=== PATIENT | female | born 1950 | race Caucasian/White ===

== ENCOUNTER → 2017-03-29 | Outpatient (CLI) | payer MEDICARE, MEDICAID ==
[2015-06-25 11:55] VITALS: BP 157/67
--- NOTE | 2017-03-29 13:19 | EKG ---
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
== END | disposition home or self-care (01) ==
LOC: EKG 12:58
PROVIDERS: ATTEND Internal Medicine Hematology & Oncology
DX: C92.10 Chronic myeloid leukemia, BCR/ABL-positive, not having achieved remission (principal)
CPT/HCPCS: 93005

== ENCOUNTER 2017-05-29 14:45 | Inpatient (IN) | payer MEDICARE, OTHER ==
[~2017-05-29] VITALS: Ht 165.1 cm; Wt 49.6 kg
[2017-05-29 15:52] LABS: BILIRUBIN,URINE SMALL (NEG); GLUCOSE,URINE NEGATIVE (NEG); NITRITE,URINE NEGATIVE (NEG); PH,URINE 5.5; PROTEIN,URINE 30 mg/dL (NEG-TRACE); UROBILINOGEN,URINE 0.2 mg/dL (0.2 mg/dL)
[2017-05-29] MEDS ORDERED: IV NORMAL SALINE 1000ML BAG 1,000 ML IV SCH (15:57)
[2017-05-29] MEDS ORDERED: ONDANSETRON PF 4 MG/2 ML VIAL. IV ONE (16:00)
[2017-05-29 16:13] LABS: BACTERIA,URINE 0 /HPF (0-FEW); SQUAMOUS EPITHELIAL CELL,UR MOD /LPF; WBC,URINE >40 /HPF (0-4)
--- NOTE | 2017-05-29 16:13 | PHYS DOC ---
Past Medical History Past Medical History: CAD, Cancer, GERD, High Cholesterol, Hypertension, Other Additional Past Medical Histor: leukemia; stage 3 lung cancer. Past Surgical History: Coronary Bypass Surgery, Hysterectomy Additional Past Surgical Histo: cardiac cath with stents Alcohol Use: None Drug Use: None Adult General Chief Complaint Chief Complaint: BLOOD IN URINE HPI HPI Patient is a 66 year old female who presents with complaint of worsening vomiting and hematuria. Patient's symptoms have been worsening over the past 2 days. Patient is currently undergoing chemotherapy treatment for stage III lung cancer. Patient follows a Dr. Iniguez of oncology. The patient has been having diarrhea over the past 2 months as a result of her chemotherapy treatments. This has not changed over the past few days, however the patient has been having too numerous to count episodes of vomiting. Patient's son-in-law's present in the room with the patient and states that the vomitus has appeared green in color. Patient has not been passing any blood in her stools or vomitus but has been passing blood in her urine. Starting yesterday there was a red tinge to the urine, however today the patient has been passing red urine. Patient said no fever and denies any complaints of pain at this time. Patient does admit to worsening fatigue and weakness which is generalized. Review of Systems Review of Systems Constitutional: Generalized fatigue and weakness, denies fever or chills [] Eyes: Denies change in visual acuity, redness, or eye pain [] HENT: Denies nasal congestion or sore throat [] Respiratory: Denies cough or shortness of breath [] Cardiovascular: Denies chest pain or edema[] GI: Nausea, vomiting, diarrhea, denies abdominal pain[] : Denies dysuria or hematuria [] Musculoskeletal: Denies back pain or joint pain [] Integument: Denies rash or skin lesions [] Neurologic: Denies headache, focal weakness or sensory changes [] All other systems were reviewed and found to be within normal limits, except as documented in this note. Current Medications Current Medications Current Medications Medications (Trade) Dose Ordered Sig/Ino Start Time Stop Time Status Last Admin Dose Admin Ondansetron HCl (Zofran) 4 mg 1X ONCE 05/29/17 16:00 05/29/17 16:01 DC 05/29/17 16:00 4 MG Sodium Chloride 1,000 ml @ 1,000 mls/hr Q1H 05/29/17 15:57 05/29/17 16:56 DC 05/29/17 15:57 1,000 MLS/HR Allergies Allergies Allergies Coded Allergies Type Severity Reaction Last Updated Verified No Known Drug Allergies 06/25/15 No Physical Exam Physical Exam Constitutional: Alert, afebrile, vital signs stable, appears ill. [] HENT: Normocephalic, atraumatic, bilateral external ears normal, oropharynx dry , no oral exudates, nose normal. [] Eyes: PERRLA, EOMI, conjunctiva normal, no discharge. [] Neck: Normal range of motion, no tenderness, supple, no stridor. [] Cardiovascular:Heart rate regular rhythm, no murmur [] Lungs & Thorax: Bilateral breath sounds clear to auscultation [] Abdomen: Bowel sounds normal, soft, no tenderness, no masses, no pulsatile masses. [] Skin: Warm, dry, no erythema, no rash. [] Back: No tenderness, no CVA tenderness. [] Extremities: No tenderness, no cyanosis, no clubbing, ROM intact, no edema. [] Neurologic: Alert and oriented X 3, normal motor function, normal sensory function, no focal deficits noted. [] Current Patient Data Vital Signs Vital Signs Date Time Temp Pulse Resp B/P (MAP) Pulse Ox O2 Delivery O2 Flow Rate FiO2 05/29/17 15:25 98.6 72 22 151/59 (89) 97 Room Air 98.6 Lab Values Laboratory Tests Test 05/29/17 15:30 05/29/17 16:36 Urine Collection Type Unknown Urine Color Yellow Urine Clarity Clear Urine pH 5.5 Urine Specific [place] 1.025 Urine Protein 30 mg/dL (NEG-TRACE) Urine Glucose (UA) Negative mg/dL (NEG) Urine Ketones (Stick) Negative mg/dL (NEG) Urine Blood Negative (NEG) Urine Nitrite Negative (NEG) Urine Bilirubin Small (NEG) Urine Urobilinogen Dipstick 0.2 mg/dL (0.2 mg/dL) Urine Leukocyte Esterase Moderate (NEG) Urine RBC 1-2 /HPF (0-2) Urine WBC >40 /HPF (0-4) Urine Squamous Epithelial Cells Mod /LPF Urine Bacteria 0 /HPF (0-FEW) Urine Hyaline Casts Many /HPF Urine Mucus Mod /LPF White Blood Count 11.0 x10^3/uL (4.0-11.0) Red Blood Count 2.68 x10^6/uL (3.50-5.40) L Hemoglobin 7.9 g/dL (12.0-15.5) L Hematocrit 24.2 % (36.0-47.0) L Mean Corpuscular Volume 90 fL (79-100) Mean Corpuscular Hemoglobin 30 pg (25-35) Mean Corpuscular Hemoglobin Concent 33 g/dL (31-37) Red Cell Distribution Width 17.4 % (11.5-14.5) H Platelet Count 188 x10^3/uL (140-400) Neutrophils (%) (Auto) 75 % (31-73) H Lymphocytes (%) (Auto) 14 % (24-48) L Monocytes (%) (Auto) 9 % (0-9) Eosinophils (%) (Auto) 1 % (0-3) Basophils (%) (Auto) 1 % (0-3) Neutrophils # (Auto) 8.2 x10^3uL (1.8-7.7) H Lymphocytes # (Auto) 1.5 x10^3/uL (1.0-4.8) Monocytes # (Auto) 1.0 x10^3/uL (0.0-1.1) Eosinophils # (Auto) 0.1 x10^3/uL (0.0-0.7) Basophils # (Auto) 0.1 x10^3/uL (0.0-0.2) Sodium Level 138 mmol/L (136-145) Potassium Level 4.8 mmol/L (3.5-5.1) Chloride Level 107 mmol/L (98-107) Carbon Dioxide Level 17 mmol/L (21-32) L Anion Gap 14 (6-14) Blood Urea Nitrogen 34 mg/dL (7-20) H Creatinine 1.9 mg/dL (0.6-1.0) H Estimated GFR (Cockcroft-Gault) 26.4 BUN/Creatinine Ratio 18 (6-20) Glucose Level 104 mg/dL (70-99) H Calcium Level 8.4 mg/dL (8.5-10.1) L Total Bilirubin 0.2 mg/dL (0.2-1.0) Aspartate Amino Transferase (AST) 15 U/L (15-37) Alanine Aminotransferase (ALT) 13 U/L (14-59) L Alkaline Phosphatase 98 U/L (46-116) Total Protein 6.9 g/dL (6.4-8.2) Albumin 3.4 g/dL (3.4-5.0) Albumin/Globulin Ratio 1.0 (1.0-1.7) Lipase 144 U/L (73-393) Laboratory Tests 05/29/17 16:36 Laboratory Tests 05/29/17 16:36 EKG EKG Not performed[] Radiology/Procedures Radiology/Procedures [facility] [address] [place] [address] IMAGING REPORT Signed PATIENT: AJITH GARCIA ACCOUNT: [id number] : 1950 LOCATION: ER AGE: 66 SEX: F EXAM STATUS: REG ER ORD. PHYSICIAN: CHIKI ALEJANDRO MD REASON: vomiting PROCEDURE: ACUTE ABDOMEN SERIES Acute abdomen series with chest, 3 views, 05/29/2017: History: Vomiting There is moderate amount of gas in large and small bowel in a nonspecific pattern. No free air seen in the abdomen. There is no evidence of organomegaly. Scattered vascular calcifications are present. A vascular stent is evident in the right common iliac region. There has been a previous median sternotomy. The heart size is normal. The pulmonary vascularity is within normal limits. Mild infiltrate has developed laterally in the right midlung. This opacity was not present on 06/17/2012. No pleural fluid is evident. IMPRESSION: 1. Increased gas in large and small bowel may reflect a mild ileus. 2. New right lateral midlung opacity compatible with pneumonia. Follow-up imaging is suggested to exclude a neoplastic etiology. DICTATED and SIGNED BY: LUBNA MCCLENDON MD DATE: 05/29/17 163 CC: CHIKI ALEJANDRO MD; CIRA BOSCH MD ~ [] Course & Med Decision Making Course & Med Decision Making Pertinent Labs and Imaging studies reviewed. (See chart for details) The patient was started on IV fluids and Zofran in the emergency department. Patient's lab work and imaging show evidence of mild ileus as well as urinary tract infection. The patient has a noted opacity in the right lung which is compared consistent with her history of lung cancer. I do not believe this to be an acute pneumonia. Due to severity of symptoms, the patient will be admitted to the hospital for further treatment. I spoke with Dr. Mi who accepted care patient in hospital. Dragon Disclaimer Dragon Disclaimer This electronic medical record was generated, in whole or in part, using a voice recognition dictation system. Departure Departure Impression: Primary Impression: Ileus Additional Impressions: Urinary tract infection Dehydration Vomiting Lung cancer Normocytic anemia Disposition: ADMITTED INPATIENT Admitting Physician: Other Condition: STABLE Referrals: CIRA BOSCH MD (PCP) Problem Qualifiers Additional Impressions: Urinary tract infection Urinary tract infection type: site unspecified Hematuria presence: without hematuria Qualified Codes: N39.0 - Urinary tract infection, site not specified Vomiting Vomiting type: unspecified Vomiting Intractability: intractable Nausea presence: with nausea Qualified Codes: R11.2 - Nausea with vomiting, unspecified Lung cancer Laterality: right Lung location: middle lobe of lung Qualified Codes: C34.2 - Malignant neoplasm of middle lobe, bronchus or lung CHIKI ALEJANDRO MD May 29, 2017 16:13
--- NOTE | 2017-05-29 16:40 | RAD ---
Acute abdomen series with chest, 3 views, 05/29/2017: History: Vomiting There is moderate amount of gas in large and small bowel in a nonspecific pattern. No free air seen in the abdomen. There is no evidence of organomegaly. Scattered vascular calcifications are present. A vascular stent is evident in the right common iliac region. There has been a previous median sternotomy. The heart size is normal. The pulmonary vascularity is within normal limits. Mild infiltrate has developed laterally in the right midlung. This opacity was not present on 06/17/2012. No pleural fluid is evident. IMPRESSION: 1. Increased gas in large and small bowel may reflect a mild ileus. 2. New right lateral midlung opacity compatible with pneumonia. Follow-up imaging is suggested to exclude a neoplastic etiology.
[2017-05-29 16:45] LABS: BASO # 0.1 x10^3/uL (0.0-0.2); BASO % 1 % (0-3); EOS % 1 % (0-3); HEMATOCRIT 24.2 % (36.0-47.0); HEMOGLOBIN 7.9 g/dL (12.0-15.5); LYMPH # 1.5 x10^3/uL (1.0-4.8); LYMPH % 14 % (24-48); MEAN CORPUSCULAR HEMOGLOBIN 30 pg (25-35); MEAN CORPUSCULAR HGB CONC 33 g/dL (31-37); MEAN CORPUSCULAR VOLUME 90 fL (79-100); MONO % 9 % (0-9); NEUT % 75 % (31-73); PLATELET COUNT 188 x10^3/uL (140-400); RED BLOOD COUNT 2.68 x10^6/uL (3.50-5.40); RED CELL DISTRIBUTION WIDTH 17.4 % (11.5-14.5)
[2017-05-29 16:58] LABS: CALCIUM 8.4 mg/dL (8.5-10.1); CREATININE 1.9 mg/dL (0.6-1.0); GFR 26.4; POTASSIUM 4.8 mmol/L (3.5-5.1)
[2017-05-29 17:03] LABS: ALBUMIN 3.4 g/dL (3.4-5.0); TOTAL BILIRUBIN 0.2 mg/dL (0.2-1.0); TOTAL PROTEIN 6.9 g/dL (6.4-8.2)
[2017-05-29] MEDS ORDERED: ONDANSETRON PF 4 MG/2 ML VIAL. IV PRN (18:30)
[2017-05-29] MEDS ORDERED: ACETAMINOPHEN 325 MG TABLET. PO PRN (18:30)
[2017-05-29 19:10] VITALS: BP 112/30
[2017-05-29] MEDS: IV NORMAL SALINE 1000ML BAG 1,000 ML IV SCH (19:25)
[2017-05-29] MEDS: cefTRIAXone IV Push 1 GM VIAL. IVP SCH (21:17)
[2017-05-29 23:03] VITALS: BP 109/50
[2017-05-29] MEDS ORDERED: ATOR10TA60 PO (23:24)
[2017-05-29] MEDS ORDERED: ALPR0.25 PO (23:24)
[2017-05-29] MEDS ORDERED: HYDR-2758 PO (23:24)
[2017-05-29] MEDS ORDERED: LISI-338 PO (23:24)
[2017-05-29] MEDS ORDERED: MEGE40TA PO (23:24)
[2017-05-29] MEDS ORDERED: CITA40TA5 PO (23:24)
[2017-05-29] MEDS ORDERED: BOSU100T PO (23:24)
[2017-05-29] MEDS ORDERED: ALLO300T PO (23:24)
[2017-05-29] MEDS ORDERED: PROC5TAB14 PO (23:24)
[2017-05-29] MEDS ORDERED: ASPI81TA50 PO (23:24)
[2017-05-30] VITALS (10 sets, daily range): BP systolic 106–138; BP diastolic 42–64
[2017-05-30] MEDS ORDERED: PNEUMOCOCCAL VAX SCREEN BY RX. MC ONE
--- NOTE | 2017-05-30 00:29 | HP ---
ADMIT DATE: 05/29/2017 CHIEF COMPLAINT: Vomiting, hematuria. HISTORY OF PRESENT ILLNESS: The patient is a 66-year-old woman, currently undergoing treatment for CML, and anticipating treatment for recently diagnosed non-small cell lung carcinoma,who presented to the Emergency Room with vomiting. She herself actually cannot recall, but her family supplied the story. She apparently had vomitus as well as passing blood in the urine. The patient herself denies any symptoms including fatigue, chills, abdominal pain, chest pain, shortness of breath. She does have generalized fatigue and weakness. PAST MEDICAL HISTORY: Non-small cell lung carcinoma, under treatment with weekly chemotherapy by Dr. Iniguez; CAD; hypertension; hyperlipidemia; GERD. FAMILY HISTORY: The patient is unaware of heart disease or cancer in family. SOCIAL HISTORY: Lives with her daughter and son-in-law. Quit smoking 1 year ago. Denies any alcohol or drug use. ALLERGIES: No known drug allergies. MEDICATIONS: MAR reconciled with home medications. REVIEW OF SYSTEMS: Positive as per HPI. The patient currently denies any symptoms whatsoever. PHYSICAL EXAMINATION: VITAL SIGNS: From today show a blood pressure of 109/50, heart rate of 71, respiratory rate at 18. She is afebrile. Temperature at 99.1. GENERAL: This is a cachectic, frail appearing 66-year-old woman, awake, alert, in no acute distress. LUNGS: Clear. HEART: Has regular rate and rhythm. ABDOMEN: Has positive bowel sounds, soft, nontender. EXTREMITIES: Show no edema. SKIN: Warm, soft and dry. LABORATORY DATA: CBC with a WBC of 11.0, hemoglobin 7.9, MCV of 90, platelets of 188. Chemistries with a BUN and creatinine of 34 and 1.9. Normal electrolytes. CO2 at 17. LFTs within normal. Urine with greater than 40 wbc's, 1-2 rbc's, no bacteria. IMAGING STUDIES: Acute abdomen series shows increased gas in the large and small bowel, may reflect a mild ileus, new right lateral mid lung opacity compatible with pneumonia versus lung CA. ASSESSMENT AND PLAN: The patient is a 66-year-old woman currently undergoing -[id number]- -f-o-r- -l-u-n-g- -C-A--,- TKI treatment for CML, presenting with nausea, vomiting as well as hematuria. Nausea and vomiting seems to have resolved by now. I am not sure if this is related to chemotherapy that she received yesterday. We will consult Dr. Iniguez. In the meantime, I will treat her symptomatically with antiemetics. Hematuria observed at home has not been evidence here. She does have fever of unknown cause. We will obtain a culture, although no bacteria noted on UA. Treat empirically with antibiotics here, Rocephin has been started. We will await final culture. The patient is significantly anemic, most likely secondary to a primary malignancy as well as its treatment. She is stable above the transfusion threshold. We will continue to monitor for the time being. We will continue all other home medications as soon as available from daughter. ALEXANDREA SWAN MD DR: PAYAL/nts JOB#: [id number] / [id number] CIRA Garcia MD MTDD
[2017-05-30] MEDS: IV NORMAL SALINE 1000ML BAG 1,000 ML IV SCH ×2 (03:26→11:00)
[2017-05-30 05:01] LABS: BASO % 0 % (0-3); EOS % 1 % (0-3); LYMPH # 1.6 x10^3/uL (1.0-4.8); LYMPH % 18 % (24-48); MEAN CORPUSCULAR HEMOGLOBIN 29 pg (25-35); MEAN CORPUSCULAR HGB CONC 33 g/dL (31-37); MEAN CORPUSCULAR VOLUME 89 fL (79-100); MONO % 10 % (0-9); NEUT % 71 % (31-73); PLATELET COUNT 166 x10^3/uL (140-400); RED BLOOD COUNT 2.32 x10^6/uL (3.50-5.40); RED CELL DISTRIBUTION WIDTH 16.8 % (11.5-14.5); WHITE BLOOD COUNT 9.4 x10^3/uL (4.0-11.0)
[2017-05-30 05:12] LABS: CREATININE 1.2 mg/dL (0.6-1.0); GFR 44.9; HEMATOCRIT 20.7 % (36.0-47.0); HEMOGLOBIN 6.8 g/dL (12.0-15.5); POTASSIUM 4.2 mmol/L (3.5-5.1)
[2017-05-30 08:44] LABS: FOLATE 6.73 ng/ml (3.2-20.0)
[2017-05-30] MEDS ORDERED: PNEUMOC CONJ VACC 23-VALENT 0.5 ML VIAL. VAX IM ONE (09:00)
[2017-05-30 10:05] LABS: % SAT IRON 9 % (15-34); IRON,SERUM 18 ug/dL (50-170)
--- NOTE | 2017-05-30 10:48 | PDOC ---
PROGRESS NOTES Chief Complaint Chief Complaint Nausea and vomiting History of Present Illness History of Present Illness She says nausea is better, but she has no appetite. She denies any abdominal pain at this time. Vitals Vitals Vital Signs Date Time Temp Pulse Resp B/P (MAP) Pulse Ox O2 Delivery O2 Flow Rate FiO2 05/30/17 10:43 100.2 69 16 110/48 100.2 05/30/17 07:00 96 Room Air Physical Exam Physical Exam Abdomen: Nondistended, hypoactive bowel sounds, soft, diffusely nontender to palpation General: Alert, Oriented X3 Heart: Regular rate, Normal S1 Lungs: Clear Abdomen: Normal bowel sounds, Soft Extremities: No edema Labs LABS Laboratory Tests Test 05/29/17 15:30 05/29/17 16:36 05/30/17 03:55 Urine Collection Type Unknown Urine Color Yellow Urine Clarity Clear Urine pH 5.5 Urine Specific [place] 1.025 Urine Protein 30 mg/dL (NEG-TRACE) Urine Glucose (UA) Negative mg/dL (NEG) Urine Ketones (Stick) Negative mg/dL (NEG) Urine Blood Negative (NEG) Urine Nitrite Negative (NEG) Urine Bilirubin Small (NEG) Urine Urobilinogen Dipstick 0.2 mg/dL (0.2 mg/dL) Urine Leukocyte Esterase Moderate (NEG) Urine RBC 1-2 /HPF (0-2) Urine WBC >40 /HPF (0-4) Urine Squamous Epithelial Cells Mod /LPF Urine Bacteria 0 /HPF (0-FEW) Urine Hyaline Casts Many /HPF Urine Mucus Mod /LPF White Blood Count 11.0 x10^3/uL (4.0-11.0) 9.4 x10^3/uL (4.0-11.0) Red Blood Count 2.68 x10^6/uL (3.50-5.40) 2.32 x10^6/uL (3.50-5.40) Hemoglobin 7.9 g/dL (12.0-15.5) 6.8 g/dL (12.0-15.5) Hematocrit 24.2 % (36.0-47.0) 20.7 % (36.0-47.0) Mean Corpuscular Volume 90 fL (79-100) 89 fL (79-100) Mean Corpuscular Hemoglobin 30 pg (25-35) 29 pg (25-35) Mean Corpuscular Hemoglobin Concent 33 g/dL (31-37) 33 g/dL (31-37) Red Cell Distribution Width 17.4 % (11.5-14.5) 16.8 % (11.5-14.5) Platelet Count 188 x10^3/uL (140-400) 166 x10^3/uL (140-400) Neutrophils (%) (Auto) 75 % (31-73) 71 % (31-73) Lymphocytes (%) (Auto) 14 % (24-48) 18 % (24-48) Monocytes (%) (Auto) 9 % (0-9) 10 % (0-9) Eosinophils (%) (Auto) 1 % (0-3) 1 % (0-3) Basophils (%) (Auto) 1 % (0-3) 0 % (0-3) Neutrophils # (Auto) 8.2 x10^3uL (1.8-7.7) 6.6 x10^3uL (1.8-7.7) Lymphocytes # (Auto) 1.5 x10^3/uL (1.0-4.8) 1.6 x10^3/uL (1.0-4.8) Monocytes # (Auto) 1.0 x10^3/uL (0.0-1.1) 0.9 x10^3/uL (0.0-1.1) Eosinophils # (Auto) 0.1 x10^3/uL (0.0-0.7) 0.1 x10^3/uL (0.0-0.7) Basophils # (Auto) 0.1 x10^3/uL (0.0-0.2) 0.0 x10^3/uL (0.0-0.2) Sodium Level 138 mmol/L (136-145) 139 mmol/L (136-145) Potassium Level 4.8 mmol/L (3.5-5.1) 4.2 mmol/L (3.5-5.1) Chloride Level 107 mmol/L (98-107) 110 mmol/L (98-107) Carbon Dioxide Level 17 mmol/L (21-32) 17 mmol/L (21-32) Anion Gap 14 (6-14) 12 (6-14) Blood Urea Nitrogen 34 mg/dL (7-20) 23 mg/dL (7-20) Creatinine 1.9 mg/dL (0.6-1.0) 1.2 mg/dL (0.6-1.0) Estimated GFR (Cockcroft-Gault) 26.4 44.9 BUN/Creatinine Ratio 18 (6-20) Glucose Level 104 mg/dL (70-99) 90 mg/dL (70-99) Calcium Level 8.4 mg/dL (8.5-10.1) 8.0 mg/dL (8.5-10.1) Total Bilirubin 0.2 mg/dL (0.2-1.0) Aspartate Amino Transf (AST/SGOT) 15 U/L (15-37) Alanine Aminotransferase (ALT/SGPT) 13 U/L (14-59) Alkaline Phosphatase 98 U/L (46-116) Total Protein 6.9 g/dL (6.4-8.2) Albumin 3.4 g/dL (3.4-5.0) Albumin/Globulin Ratio 1.0 (1.0-1.7) Lipase 144 U/L (73-393) Reticulocyte Count (auto) 0.4 % (0.5-2.5) Iron Level 18 ug/dL (50-170) Total Iron Binding Capacity 210 ug/dL (250-450) Iron Saturation 9 % (15-34) Vitamin B12 Level 622 pg/mL (247-911) Serum Folate 6.73 ng/ml (3.2-20.0) Review of Systems Review of Systems Constitutional: Alert and oriented GI: Decreased appetite Neuro: Alert and oriented Assessment and Plan Assessmemt and Plan Problems Medical Problems: (1) Dehydration Status: Acute (2) Ileus Status: Acute (3) Lung cancer Status: Acute (4) Normocytic anemia Status: Acute (5) Urinary tract infection Status: Acute (6) Vomiting Status: Acute Acute kidney injury: Improving Plan: Continue inpatient care, IV antibiotics, supportive care is indicated Packed red blood cell transfusion today Monitor frequent vitals, daily labs Follow up urine culture Follow-up oncology recommendations Discussed with nurse Problems: Comment Review of Relevant I have reviewed the following items kings (where applicable) has been applied. Labs Laboratory Tests Test 05/29/17 15:30 05/29/17 16:36 05/30/17 03:55 Urine Collection Type Unknown Urine Color Yellow Urine Clarity Clear Urine pH 5.5 Urine Specific [place] 1.025 Urine Protein 30 mg/dL (NEG-TRACE) Urine Glucose (UA) Negative mg/dL (NEG) Urine Ketones (Stick) Negative mg/dL (NEG) Urine Blood Negative (NEG) Urine Nitrite Negative (NEG) Urine Bilirubin Small (NEG) Urine Urobilinogen Dipstick 0.2 mg/dL (0.2 mg/dL) Urine Leukocyte Esterase Moderate (NEG) Urine RBC 1-2 /HPF (0-2) Urine WBC >40 /HPF (0-4) Urine Squamous Epithelial Cells Mod /LPF Urine Bacteria 0 /HPF (0-FEW) Urine Hyaline Casts Many /HPF Urine Mucus Mod /LPF White Blood Count 11.0 x10^3/uL (4.0-11.0) 9.4 x10^3/uL (4.0-11.0) Red Blood Count 2.68 x10^6/uL (3.50-5.40) 2.32 x10^6/uL (3.50-5.40) Hemoglobin 7.9 g/dL (12.0-15.5) 6.8 g/dL (12.0-15.5) Hematocrit 24.2 % (36.0-47.0) 20.7 % (36.0-47.0) Mean Corpuscular Volume 90 fL (79-100) 89 fL (79-100) Mean Corpuscular Hemoglobin 30 pg (25-35) 29 pg (25-35) Mean Corpuscular Hemoglobin Concent 33 g/dL (31-37) 33 g/dL (31-37) Red Cell Distribution Width 17.4 % (11.5-14.5) 16.8 % (11.5-14.5) Platelet Count 188 x10^3/uL (140-400) 166 x10^3/uL (140-400) Neutrophils (%) (Auto) 75 % (31-73) 71 % (31-73) Lymphocytes (%) (Auto) 14 % (24-48) 18 % (24-48) Monocytes (%) (Auto) 9 % (0-9) 10 % (0-9) Eosinophils (%) (Auto) 1 % (0-3) 1 % (0-3) Basophils (%) (Auto) 1 % (0-3) 0 % (0-3) Neutrophils # (Auto) 8.2 x10^3uL (1.8-7.7) 6.6 x10^3uL (1.8-7.7) Lymphocytes # (Auto) 1.5 x10^3/uL (1.0-4.8) 1.6 x10^3/uL (1.0-4.8) Monocytes # (Auto) 1.0 x10^3/uL (0.0-1.1) 0.9 x10^3/uL (0.0-1.1) Eosinophils # (Auto) 0.1 x10^3/uL (0.0-0.7) 0.1 x10^3/uL (0.0-0.7) Basophils # (Auto) 0.1 x10^3/uL (0.0-0.2) 0.0 x10^3/uL (0.0-0.2) Sodium Level 138 mmol/L (136-145) 139 mmol/L (136-145) Potassium Level 4.8 mmol/L (3.5-5.1) 4.2 mmol/L (3.5-5.1) Chloride Level 107 mmol/L (98-107) 110 mmol/L (98-107) Carbon Dioxide Level 17 mmol/L (21-32) 17 mmol/L (21-32) Anion Gap 14 (6-14) 12 (6-14) Blood Urea Nitrogen 34 mg/dL (7-20) 23 mg/dL (7-20) Creatinine 1.9 mg/dL (0.6-1.0) 1.2 mg/dL (0.6-1.0) Estimated GFR (Cockcroft-Gault) 26.4 44.9 BUN/Creatinine Ratio 18 (6-20) Glucose Level 104 mg/dL (70-99) 90 mg/dL (70-99) Calcium Level 8.4 mg/dL (8.5-10.1) 8.0 mg/dL (8.5-10.1) Total Bilirubin 0.2 mg/dL (0.2-1.0) Aspartate Amino Transf (AST/SGOT) 15 U/L (15-37) Alanine Aminotransferase (ALT/SGPT) 13 U/L (14-59) Alkaline Phosphatase 98 U/L (46-116) Total Protein 6.9 g/dL (6.4-8.2) Albumin 3.4 g/dL (3.4-5.0) Albumin/Globulin Ratio 1.0 (1.0-1.7) Lipase 144 U/L (73-393) Reticulocyte Count (auto) 0.4 % (0.5-2.5) Iron Level 18 ug/dL (50-170) Total Iron Binding Capacity 210 ug/dL (250-450) Iron Saturation 9 % (15-34) Vitamin B12 Level 622 pg/mL (247-911) Serum Folate 6.73 ng/ml (3.2-20.0) Laboratory Tests Test 05/29/17 15:30 05/29/17 16:36 05/30/17 03:55 Urine Collection Type Unknown Urine Color Yellow Urine Clarity Clear Urine pH 5.5 Urine Specific [place] 1.025 Urine Protein 30 mg/dL (NEG-TRACE) Urine Glucose (UA) Negative mg/dL (NEG) Urine Ketones (Stick) Negative mg/dL (NEG) Urine Blood Negative (NEG) Urine Nitrite Negative (NEG) Urine Bilirubin Small (NEG) Urine Urobilinogen Dipstick 0.2 mg/dL (0.2 mg/dL) Urine Leukocyte Esterase Moderate (NEG) Urine RBC 1-2 /HPF (0-2) Urine WBC >40 /HPF (0-4) Urine Squamous Epithelial Cells Mod /LPF Urine Bacteria 0 /HPF (0-FEW) Urine Hyaline Casts Many /HPF Urine Mucus Mod /LPF White Blood Count 11.0 x10^3/uL (4.0-11.0) 9.4 x10^3/uL (4.0-11.0) Red Blood Count 2.68 x10^6/uL (3.50-5.40) 2.32 x10^6/uL (3.50-5.40) Hemoglobin 7.9 g/dL (12.0-15.5) 6.8 g/dL (12.0-15.5) Hematocrit 24.2 % (36.0-47.0) 20.7 % (36.0-47.0) Mean Corpuscular Volume 90 fL (79-100) 89 fL (79-100) Mean Corpuscular Hemoglobin 30 pg (25-35) 29 pg (25-35) Mean Corpuscular Hemoglobin Concent 33 g/dL (31-37) 33 g/dL (31-37) Red Cell Distribution Width 17.4 % (11.5-14.5) 16.8 % (11.5-14.5) Platelet Count 188 x10^3/uL (140-400) 166 x10^3/uL (140-400) Neutrophils (%) (Auto) 75 % (31-73) 71 % (31-73) Lymphocytes (%) (Auto) 14 % (24-48) 18 % (24-48) Monocytes (%) (Auto) 9 % (0-9) 10 % (0-9) Eosinophils (%) (Auto) 1 % (0-3) 1 % (0-3) Basophils (%) (Auto) 1 % (0-3) 0 % (0-3) Neutrophils # (Auto) 8.2 x10^3uL (1.8-7.7) 6.6 x10^3uL (1.8-7.7) Lymphocytes # (Auto) 1.5 x10^3/uL (1.0-4.8) 1.6 x10^3/uL (1.0-4.8) Monocytes # (Auto) 1.0 x10^3/uL (0.0-1.1) 0.9 x10^3/uL (0.0-1.1) Eosinophils # (Auto) 0.1 x10^3/uL (0.0-0.7) 0.1 x10^3/uL (0.0-0.7) Basophils # (Auto) 0.1 x10^3/uL (0.0-0.2) 0.0 x10^3/uL (0.0-0.2) Sodium Level 138 mmol/L (136-145) 139 mmol/L (136-145) Potassium Level 4.8 mmol/L (3.5-5.1) 4.2 mmol/L (3.5-5.1) Chloride Level 107 mmol/L (98-107) 110 mmol/L (98-107) Carbon Dioxide Level 17 mmol/L (21-32) 17 mmol/L (21-32) Anion Gap 14 (6-14) 12 (6-14) Blood Urea Nitrogen 34 mg/dL (7-20) 23 mg/dL (7-20) Creatinine 1.9 mg/dL (0.6-1.0) 1.2 mg/dL (0.6-1.0) Estimated GFR (Cockcroft-Gault) 26.4 44.9 BUN/Creatinine Ratio 18 (6-20) Glucose Level 104 mg/dL (70-99) 90 mg/dL (70-99) Calcium Level 8.4 mg/dL (8.5-10.1) 8.0 mg/dL (8.5-10.1) Total Bilirubin 0.2 mg/dL (0.2-1.0) Aspartate Amino Transf (AST/SGOT) 15 U/L (15-37) Alanine Aminotransferase (ALT/SGPT) 13 U/L (14-59) Alkaline Phosphatase 98 U/L (46-116) Total Protein 6.9 g/dL (6.4-8.2) Albumin 3.4 g/dL (3.4-5.0) Albumin/Globulin Ratio 1.0 (1.0-1.7) Lipase 144 U/L (73-393) Reticulocyte Count (auto) 0.4 % (0.5-2.5) Iron Level 18 ug/dL (50-170) Total Iron Binding Capacity 210 ug/dL (250-450) Iron Saturation 9 % (15-34) Vitamin B12 Level 622 pg/mL (247-911) Serum Folate 6.73 ng/ml (3.2-20.0) Medications Current Medications Sodium Chloride 1,000 ml @ 1,000 mls/hr Q1H IV Last administered on 15:57; Start 05/29/17 at 15:57; Stop 05/29/17 at 16:56; Status DC Ondansetron HCl (Zofran) 4 mg 1X ONCE IV Last administered on 05/29/17 16:00 ; Start 05/29/17 at 16:00; Stop 05/29/17 at 16:01; Status DC Ondansetron HCl (Zofran) 4 mg PRN Q8HRS PRN IV NAUSEA/VOMITING Last administered on 05/29/17 21:17; Start 05/29/17 at 18:30; Stop 05/30/17 at 18 :29 Sodium Chloride 1,000 ml @ 125 mls/hr Q8H IV Last administered on 05/30/17 03:26; Start 05/29/17 at 19:00; Stop 05/30/17 at 18:59 Acetaminophen (Tylenol) 650 mg PRN Q4HRS PRN PO FEVER Last administered on 09:11; Start 05/29/17 at 18:30; Stop 05/30/17 at 18:29 Ceftriaxone Sodium 1 gm/ Dextrose 50 ml @ 100 mls/hr Q24H IV ; Start 05/29/17 at 18:30; Status UNV Ceftriaxone Sodium (Rocephin) 1 gm Q24H IVP Last administered on 05/29/17 21: 17; Start 05/29/17 at 20:00 Pneumococcal Polyvalent Vaccine (Do NOT chart on this placeholder) 0.5 each 1X ONCE MC ; Start 05/30/17 at 00:00; Stop 05/30/17 at 00:01; Status UNV Pneumococcal Polyvalent Vaccine (Pneumovax 23) 0.5 ml ONCE ONCE VAX IM ; Start 05/30/17 at 09:00; Stop 05/30/17 at 09:01; Status DC Active Scripts Active Reported Bosulif (Bosutinib) 100 Mg Tablet 100 Mg PO DAILY Bosulif (Bosutinib) 100 Mg Tablet 100 Mg PO DAILY Prochlorperazine Maleate 10 Mg Tablet 1 Tab PO Q6HRS Megestrol Acetate 40 Mg Tablet 40 Mg PO DAILY Atorvastatin Calcium 10 Mg Tablet 1 Tab PO DAILY Xanax (Alprazolam) 0.25 Mg Tablet 0.25 Mg PO PRN QHS PRN Citalopram Hbr (Citalopram Hydrobromide) 40 Mg Tablet 1 Tab PO DAILY Lisinopril 5 Mg Tablet 1 Tab PO DAILY Aspir-Low (Aspirin) 81 Mg Tablet. 1 Tab PO DAILY Allopurinol 300 Mg Tablet 1 Tab PO DAILY Hydrocodone-Apap 5-325 (Hydrocodone Bit/Acetaminophen) 1 Each Tablet 1 Tab PO PRN Q6HRS PRN Vitals/I & O Vital Sign - Last 24 Hours 05/29/17 05/29/17 05/29/17 05/29/17 15:25 19:10 19:10 23:03 Temp 98.6 99.3 99.1 98.6 99.3 99.1 Pulse 72 69 71 Resp 22 18 18 B/P (MAP) 151/59 (89) 112/30 (57) 109/50 (69) Pulse Ox 97 98 96 O2 Delivery Room Air Room Air Room Air Room Air 05/30/17 05/30/17 05/30/17 05/30/17 03:00 07:00 10:23 10:43 Temp 98.0 99.5 99.1 100.2 98.0 99.5 99.1 100.2 Pulse 76 83 74 69 Resp 18 18 14 16 B/P (MAP) 128/58 (81) 127/54 (78) 106/42 110/48 Pulse Ox 90 96 O2 Delivery Room Air Room Air Intake and Output 05/29/17 05/29/17 05/30/17 15:00 23:00 07:00 Intake Total 60 ml 1502 ml Output Total 500 ml Balance 60 ml 1002 ml GEOVANNI GAUTHIER MD May 30, 2017 10:48
[2017-05-30] MEDS ORDERED: ACETAMINOPHEN 325 MG TABLET. PO ONE (11:15)
[2017-05-30] MEDS ORDERED: ALPRAZolam 0.25 MG TABLET PO PRN (15:00)
[2017-05-30] MEDS: CITALOPRAM 20 MG TABLET. PO SCH (17:19)
[2017-05-30] MEDS: ALLOPURINOL 300 MG TABLET. PO SCH (17:19)
[2017-05-30 18:07] LABS: BASO % 1 % (0-3); EOS % 2 % (0-3); HEMATOCRIT 23.6 % (36.0-47.0); HEMOGLOBIN 7.8 g/dL (12.0-15.5); LYMPH # 0.9 x10^3/uL (1.0-4.8); LYMPH % 14 % (24-48); MEAN CORPUSCULAR HEMOGLOBIN 29 pg (25-35); MEAN CORPUSCULAR HGB CONC 33 g/dL (31-37); MEAN CORPUSCULAR VOLUME 88 fL (79-100); MONO % 10 % (0-9); NEUT % 74 % (31-73); PLATELET COUNT 152 x10^3/uL (140-400); RED BLOOD COUNT 2.69 x10^6/uL (3.50-5.40)
--- NOTE | 2017-05-30 18:24 | PDOC2 ---
CONSULT Date of Consult Date of Consult DATE: 05/30/17 TIME: 18:10 Current Problem List Problem List Problems Medical Problems: (1) Dehydration Status: Acute (2) Ileus Status: Acute (3) Lung cancer Status: Acute (4) Normocytic anemia Status: Acute (5) Urinary tract infection Status: Acute (6) Vomiting Status: Acute Current Medications Current Medications Current Medications Sodium Chloride 1,000 ml @ 1,000 mls/hr Q1H IV Last administered on 15:57; Start 05/29/17 at 15:57; Stop 05/29/17 at 16:56; Status DC Ondansetron HCl (Zofran) 4 mg 1X ONCE IV Last administered on 05/29/17 16:00 ; Start 05/29/17 at 16:00; Stop 05/29/17 at 16:01; Status DC Ondansetron HCl (Zofran) 4 mg PRN Q8HRS PRN IV NAUSEA/VOMITING Last administered on 05/29/17 21:17; Start 05/29/17 at 18:30; Stop 05/30/17 at 18 :29 Sodium Chloride 1,000 ml @ 125 mls/hr Q8H IV Last administered on 05/30/17 11:00; Start 05/29/17 at 19:00; Stop 05/30/17 at 18:59 Acetaminophen (Tylenol) 650 mg PRN Q4HRS PRN PO FEVER Last administered on 09:11; Start 05/29/17 at 18:30; Stop 05/30/17 at 18:29 Ceftriaxone Sodium 1 gm/ Dextrose 50 ml @ 100 mls/hr Q24H IV ; Start 05/29/17 at 18:30; Status UNV Ceftriaxone Sodium (Rocephin) 1 gm Q24H IVP Last administered on 05/29/17 21: 17; Start 05/29/17 at 20:00 Pneumococcal Polyvalent Vaccine (Do NOT chart on this placeholder) 0.5 each 1X ONCE MC ; Start 05/30/17 at 00:00; Stop 05/30/17 at 00:01; Status UNV Pneumococcal Polyvalent Vaccine (Pneumovax 23) 0.5 ml ONCE ONCE VAX IM ; Start 05/30/17 at 09:00; Stop 05/30/17 at 09:01; Status DC Acetaminophen (Tylenol) 650 mg 1X ONCE PO Last administered on 05/30/17 11: 18; Start 05/30/17 at 11:15; Stop 05/30/17 at 11:16; Status DC Allopurinol (Zyloprim) 300 mg DAILY PO Last administered on 05/30/17 17:19; Start 05/30/17 at 16:00 Alprazolam (Xanax) 0.25 mg PRN QHS PRN PO ANXIETY / AGITATION; Start 05/30/17 at 15:00 Atorvastatin Calcium (Lipitor) 10 mg QHS PO ; Start 05/30/17 at 21:00 Citalopram Hydrobromide (CeleXA) 40 mg DAILY PO Last administered on 17:19; Start 05/30/17 at 16:00 Active Scripts Active Reported Bosulif (Bosutinib) 100 Mg Tablet 100 Mg PO DAILY Bosulif (Bosutinib) 100 Mg Tablet 100 Mg PO DAILY Prochlorperazine Maleate 10 Mg Tablet 1 Tab PO Q6HRS Megestrol Acetate 40 Mg Tablet 40 Mg PO DAILY Atorvastatin Calcium 10 Mg Tablet 1 Tab PO DAILY Xanax (Alprazolam) 0.25 Mg Tablet 0.25 Mg PO PRN QHS PRN Citalopram Hbr (Citalopram Hydrobromide) 40 Mg Tablet 1 Tab PO DAILY Lisinopril 5 Mg Tablet 1 Tab PO DAILY Aspir-Low (Aspirin) 81 Mg Tablet. 1 Tab PO DAILY Allopurinol 300 Mg Tablet 1 Tab PO DAILY Hydrocodone-Apap 5-325 (Hydrocodone Bit/Acetaminophen) 1 Each Tablet 1 Tab PO PRN Q6HRS PRN Allergies Allergies: Coded Allergies: No Known Drug Allergies (Unverified , 06/25/15) Vitals VITALS Vital Signs Date Time Temp Pulse Resp B/P (MAP) Pulse Ox O2 Delivery O2 Flow Rate FiO2 05/30/17 15:00 100.2 79 20 133/43 (73) 97 Room Air 100.2 Labs Labs Laboratory Tests Test 05/29/17 15:30 05/29/17 16:36 05/30/17 03:55 05/30/17 17:40 Urine Collection Type Unknown Urine Color Yellow Urine Clarity Clear Urine pH 5.5 Urine Specific [place] 1.025 Urine Protein 30 mg/dL (NEG-TRACE) Urine Glucose (UA) Negative mg/dL (NEG) Urine Ketones (Stick) Negative mg/dL (NEG) Urine Blood Negative (NEG) Urine Nitrite Negative (NEG) Urine Bilirubin Small (NEG) Urine Urobilinogen Dipstick 0.2 mg/dL (0.2 mg/dL) Urine Leukocyte Esterase Moderate (NEG) Urine RBC 1-2 /HPF (0-2) Urine WBC >40 /HPF (0-4) Urine Squamous Epithelial Cells Mod /LPF Urine Bacteria 0 /HPF (0-FEW) Urine Hyaline Casts Many /HPF Urine Mucus Mod /LPF White Blood Count 11.0 x10^3/uL (4.0-11.0) 9.4 x10^3/uL (4.0-11.0) 7.0 x10^3/uL (4.0-11.0) Red Blood Count 2.68 x10^6/uL (3.50-5.40) 2.32 x10^6/uL (3.50-5.40) 2.69 x10^6/uL (3.50-5.40) Hemoglobin 7.9 g/dL (12.0-15.5) 6.8 g/dL (12.0-15.5) 7.8 g/dL (12.0-15.5) Hematocrit 24.2 % (36.0-47.0) 20.7 % (36.0-47.0) 23.6 % (36.0-47.0) Mean Corpuscular Volume 90 fL (79-100) 89 fL (79-100) 88 fL (79-100) Mean Corpuscular Hemoglobin 30 pg (25-35) 29 pg (25-35) 29 pg (25-35) Mean Corpuscular Hemoglobin Concent 33 g/dL (31-37) 33 g/dL (31-37) 33 g/dL (31-37) Red Cell Distribution Width 17.4 % (11.5-14.5) 16.8 % (11.5-14.5) 18.0 % (11.5-14.5) Platelet Count 188 x10^3/uL (140-400) 166 x10^3/uL (140-400) 152 x10^3/uL (140-400) Neutrophils (%) (Auto) 75 % (31-73) 71 % (31-73) 74 % (31-73) Lymphocytes (%) (Auto) 14 % (24-48) 18 % (24-48) 14 % (24-48) Monocytes (%) (Auto) 9 % (0-9) 10 % (0-9) 10 % (0-9) Eosinophils (%) (Auto) 1 % (0-3) 1 % (0-3) 2 % (0-3) Basophils (%) (Auto) 1 % (0-3) 0 % (0-3) 1 % (0-3) Neutrophils # (Auto) 8.2 x10^3uL (1.8-7.7) 6.6 x10^3uL (1.8-7.7) 5.2 x10^3uL (1.8-7.7) Lymphocytes # (Auto) 1.5 x10^3/uL (1.0-4.8) 1.6 x10^3/uL (1.0-4.8) 0.9 x10^3/uL (1.0-4.8) Monocytes # (Auto) 1.0 x10^3/uL (0.0-1.1) 0.9 x10^3/uL (0.0-1.1) 0.7 x10^3/uL (0.0-1.1) Eosinophils # (Auto) 0.1 x10^3/uL (0.0-0.7) 0.1 x10^3/uL (0.0-0.7) 0.1 x10^3/uL (0.0-0.7) Basophils # (Auto) 0.1 x10^3/uL (0.0-0.2) 0.0 x10^3/uL (0.0-0.2) 0.0 x10^3/uL (0.0-0.2) Sodium Level 138 mmol/L (136-145) 139 mmol/L (136-145) Potassium Level 4.8 mmol/L (3.5-5.1) 4.2 mmol/L (3.5-5.1) Chloride Level 107 mmol/L (98-107) 110 mmol/L (98-107) Carbon Dioxide Level 17 mmol/L (21-32) 17 mmol/L (21-32) Anion Gap 14 (6-14) 12 (6-14) Blood Urea Nitrogen 34 mg/dL (7-20) 23 mg/dL (7-20) Creatinine 1.9 mg/dL (0.6-1.0) 1.2 mg/dL (0.6-1.0) Estimated GFR (Cockcroft-Gault) 26.4 44.9 BUN/Creatinine Ratio 18 (6-20) Glucose Level 104 mg/dL (70-99) 90 mg/dL (70-99) Calcium Level 8.4 mg/dL (8.5-10.1) 8.0 mg/dL (8.5-10.1) Total Bilirubin 0.2 mg/dL (0.2-1.0) Aspartate Amino Transf (AST/SGOT) 15 U/L (15-37) Alanine Aminotransferase (ALT/SGPT) 13 U/L (14-59) Alkaline Phosphatase 98 U/L (46-116) Total Protein 6.9 g/dL (6.4-8.2) Albumin 3.4 g/dL (3.4-5.0) Albumin/Globulin Ratio 1.0 (1.0-1.7) Lipase 144 U/L (73-393) Reticulocyte Count (auto) 0.4 % (0.5-2.5) Iron Level 18 ug/dL (50-170) Total Iron Binding Capacity 210 ug/dL (250-450) Iron Saturation 9 % (15-34) Ferritin 547 ng/mL (8-252) Vitamin B12 Level 622 pg/mL (247-911) Serum Folate 6.73 ng/ml (3.2-20.0) Laboratory Tests Test 05/30/17 03:55 05/30/17 17:40 White Blood Count 9.4 x10^3/uL (4.0-11.0) 7.0 x10^3/uL (4.0-11.0) Red Blood Count 2.32 x10^6/uL (3.50-5.40) 2.69 x10^6/uL (3.50-5.40) Hemoglobin 6.8 g/dL (12.0-15.5) 7.8 g/dL (12.0-15.5) Hematocrit 20.7 % (36.0-47.0) 23.6 % (36.0-47.0) Mean Corpuscular Volume 89 fL (79-100) 88 fL (79-100) Mean Corpuscular Hemoglobin 29 pg (25-35) 29 pg (25-35) Mean Corpuscular Hemoglobin Concent 33 g/dL (31-37) 33 g/dL (31-37) Red Cell Distribution Width 16.8 % (11.5-14.5) 18.0 % (11.5-14.5) Platelet Count 166 x10^3/uL (140-400) 152 x10^3/uL (140-400) Neutrophils (%) (Auto) 71 % (31-73) 74 % (31-73) Lymphocytes (%) (Auto) 18 % (24-48) 14 % (24-48) Monocytes (%) (Auto) 10 % (0-9) 10 % (0-9) Eosinophils (%) (Auto) 1 % (0-3) 2 % (0-3) Basophils (%) (Auto) 0 % (0-3) 1 % (0-3) Neutrophils # (Auto) 6.6 x10^3uL (1.8-7.7) 5.2 x10^3uL (1.8-7.7) Lymphocytes # (Auto) 1.6 x10^3/uL (1.0-4.8) 0.9 x10^3/uL (1.0-4.8) Monocytes # (Auto) 0.9 x10^3/uL (0.0-1.1) 0.7 x10^3/uL (0.0-1.1) Eosinophils # (Auto) 0.1 x10^3/uL (0.0-0.7) 0.1 x10^3/uL (0.0-0.7) Basophils # (Auto) 0.0 x10^3/uL (0.0-0.2) 0.0 x10^3/uL (0.0-0.2) Reticulocyte Count (auto) 0.4 % (0.5-2.5) Sodium Level 139 mmol/L (136-145) Potassium Level 4.2 mmol/L (3.5-5.1) Chloride Level 110 mmol/L (98-107) Carbon Dioxide Level 17 mmol/L (21-32) Anion Gap 12 (6-14) Blood Urea Nitrogen 23 mg/dL (7-20) Creatinine 1.2 mg/dL (0.6-1.0) Estimated GFR (Cockcroft-Gault) 44.9 Glucose Level 90 mg/dL (70-99) Calcium Level 8.0 mg/dL (8.5-10.1) Iron Level 18 ug/dL (50-170) Total Iron Binding Capacity 210 ug/dL (250-450) Iron Saturation 9 % (15-34) Ferritin 547 ng/mL (8-252) Vitamin B12 Level 622 pg/mL (247-911) Serum Folate 6.73 ng/ml (3.2-20.0) Assessment/Plan Assessment/Plan Heme/Onc Consult REASON FOR CONSULT ~ CML diagnosed 09/19/[address] Mi History of Present Illness Ms Lynne Frost is a female, who was 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 ~She was initially treated with~nilotinib , but it was discontinued due to QTc prolongation. ~The patient is unsure about the reason for discontinuation. ~Subsequently, Gleevec~was initiated, and she is currently on 300 mg a day. ~Gleevec was held on March 03, 2015, because of prolonged QT interval of 479 milliseconds. ~EKG was repeated on 17 of March, and the QT interval was corrected at 453 milliseconds. ~However, she has not resumed Gleevec, and she has been under the care of Dr. Ernst Joseph. ~The patient has now moved from [place] to [place], and she is here to establish care with me. ~She reports that she has ran out of Gleevec, and she wants to get a prescription so she can resume it. I reviewed old records, and I reviewed a note from Dr. Lani Hernandez. ~The patient had presented to [facility] on 08/19/2009 for severely elevated WBC count. ~The patient has a chronic history of elevated WBC of 20-25 range. ~Her white cells were over 1000 at the time of admission to [facility]. ~She was started on hydroxyurea to decrease her blood counts. ~ Bone marrow biopsy revealed chronic myelogenous leukemia showing 55% cellularity , and she was given Tasigna at 400 mg daily. ~She responded very well to Gleevec. The patient was subsequently evaluated by Dr. Soria and then the patient transferred her care to Dr. Jose Luis Cedillo. ~Dr. Cedillo felt that nilotinib was relatively contraindicated because of the risk of exacerbation of peripheral vascular disease with nilotinib and, hence, nilotinib was held. ~She subsequently transferred her care to Dr. Ernst Joseph, and Gleevec was initiated in August of 2014. BCR ABL worse at 55.487% 03/12/17. I discussed with the patient and her daughter. ~Her daughter confirmed that she has been getting Gleevec. ~Since the markers are worse this is suggestive of resistance to Gleevec and I will switch to~Bosulif - prescribed 03/25/17. Stage IIIA NSCLC - Moderately to poorly differentiated adenocarcinoma in RUL diagnosed 04/11/17~- with potential nodules in the RLL and enlarged adenopathy right hilar at 1.1cm.~MRI head negative.~PET scan on 04/19/2017 reveals large hypermetabolic right upper lobe lung mass with evidence of metastatic disease to the right hilar and mediastinal lymph nodes compatible with stage IIIa lung cancer. I reviewed the diagnosis and prognosis and treatment options for stage IIIa non- small cell lung cancer. ~If she chooses active treatment is I would recommend concurrent chemoradiation therapy. ~The other option would be radiation therapy and chemotherapy given sequentially. ~Other option would be radiation therapy alone because of her poor functional status. ~The patient and daughter are concerned about her ability to tolerate chemotherapy and radiation therapy because of her baseline poor functional status. ~I reviewed the risks and benefits. ~They have decided supportive care only and no chemo or radiation.. She is now admitted to [facility] for ileus/n/v. Past medical history: ~~Coronary artery disease, depression, peripheral vascular disease with history of four stents placed in her right leg, congestive heart failure, COPD, fibromyalgia, and hypercholesterolemia. Social history: ~She smokes cigarettes one pack a day. Family history: ~Negative for malignancy. ROS - 12 point ROS performed, mentioned in HPI, rest neg Physical Exam~ Constitutional: She is oriented to person, place, and time. She appears well- developed~and well-nourished. HENT: Head: Normocephalic~and atraumatic. Eyes: EOM~are normal. Neck: Neck supple. Cardiovascular: Normal rate~and normal heart sounds. ~ Pulmonary/Chest: Effort normal~and breath sounds normal. Abdominal: Soft. There is mild tenderness. Musculoskeletal: She exhibits no tenderness. Neurological: She is alert~and oriented to person, place, and time. Skin: Skin is warm~and dry. Psychiatric: She has a normal mood and affect. Assessment and Plan: 1. CML diagnosed in 2009, initially treated with~nilotinib~and then discontinued because of concerns that it makes as peripheral vascular disease and concerns regarding possible prolonged QT interval. ~Gleevec~was initiated in August 2014, she is tolerating it very well. ~I have advised her to resume Gleevec. ~She is currently at 300 mg a day. ~I also consulted Cardiology because of her history of coronary artery disease and her history of QT prolongation. ~I reviewed in detail the risks and benefits of treatment with Gleevec. ~She understands and she agrees to proceed with it. ~WBC was worse at 53.6 in 05/2015, prescription for gleevec~400 mg/day was given 05/12/2015. PCR for BCR-ABL on 10/03/15 reveals improving transcripts, but worse on 01/13/16 as she mentions that she had missed 3 weeks of gleevec due to insurance issues. She has since resumed. WBC improved 8.8. BCR-ABL still high, I am concerned about her compliance, I again advised the importance of compliance. Patient's daughter is concerned that Lynne did NOT receive Gleevec while she was in a fpc for 4 months this spring. The daughter states that Lynne has received it daily since the beginning of December 2016. CBC on 03/12/2017 reveals that her white cells remain high at 20.3 and the platelets are still high at 1540 and she continues to have anemia at 8.7. CBC on 03/25/2017 reveals that her white cells are worse at 30.8 and the platelets are still high at 1649 and she continues to have anemia at 8.1. BCR ABL worse at 55.487% 03/12/17. I discussed with the patient and her daughter. ~Her daughter confirmed that she has been getting Gleevec. ~Since the markers are worse this is suggestive of resistance to Gleevec and I will switch to~Bosulif - prescribed 03/25/17. ~I reviewed risk and benefits and pt understands and agrees to proceed with treatment. WBC better at 7.0 on 05/30/17. and BCR ABL improved with bosulif. Bosulif can cause nausea (47% to 48%), vomiting (37% to 43%), abdominal pain (31 % to 42%), Continue bosulif 500 mg dailywhen able to tolerate oral intake. 2. Stage IIIA NSCLC - Moderately to poorly differentiated adenocarcinoma in RUL diagnosed 04/11/17~- with potential nodules in the RLL and enlarged adenopathy right hilar at 1.1cm.~MRI head negative.~PET scan on 04/19/2017 reveals large hypermetabolic right upper lobe lung mass with evidence of metastatic disease to the right hilar and mediastinal lymph nodes compatible with stage IIIa lung cancer. I reviewed the diagnosis and prognosis and treatment options for stage IIIa non- small cell lung cancer. ~If she chooses active treatment is I would recommend concurrent chemoradiation therapy. ~The other option would be radiation therapy and chemotherapy given sequentially. ~Other option would be radiation therapy alone because of her poor functional status. ~The patient and daughter are concerned about her ability to tolerate chemotherapy and radiation therapy because of her baseline poor functional status. ~I reviewed the risks and benefits. ~They have decided supportive care only and no chemo or radiation.. 3. N/V - ? due to bosulif. monitor. WILIAN BUNDY MD May 30, 2017 18:24
[2017-05-30] MEDS: ATORVASTATIN CALCIUM 10 MG TABLET. PO SCH ×2 (20:33→21:00)
[2017-05-30] MEDS: cefTRIAXone IV Push 1 GM VIAL. IVP SCH (20:34)
[2017-05-30] MEDS: IV DEXTROSE 5 %-0.45 % NACL 1,000 ML IV SCH (22:34)
[2017-05-31 03:00] VITALS: BP 129/49
[2017-05-31 05:53] LABS: CALCIUM 8.4 mg/dL (8.5-10.1); CREATININE 0.9 mg/dL (0.6-1.0); GFR 62.6; POTASSIUM 4.2 mmol/L (3.5-5.1)
[2017-05-31 07:00] VITALS: BP 158/66
[2017-05-31] MEDS: CITALOPRAM 20 MG TABLET. PO SCH (08:16)
[2017-05-31] MEDS: ALLOPURINOL 300 MG TABLET. PO SCH (08:16)
[2017-05-31] MEDS: IV DEXTROSE 5 %-0.45 % NACL 1,000 ML IV SCH ×2 (08:30→18:30)
--- NOTE | 2017-05-31 09:12 | PDOC ---
PROGRESS NOTES Subjective Subjective HPI - f/u of CML/NSCLC ROS - no n/v Objective Objective Vital Signs Date Time Temp Pulse Resp B/P (MAP) Pulse Ox O2 Delivery O2 Flow Rate FiO2 05/31/17 07:00 99.5 73 16 158/66 (96) 97 Room Air 99.5 05/30/17 19:00 2.0 Intake and Output 05/31/17 07:00 Intake Total 2105 ml Output Total 750 ml Balance 1355 ml Intake Oral 1000 ml IV Total 635 ml Blood Product IV Normal Saline Flush 470 ml Output Urine Total 750 ml # Voids 1 Physical Exam Heart: Normal S1, Normal S2 General: Alert, Oriented X3, No acute distress Lungs: Clear to auscultation Neuro: Normal speech Assessment Assessment Problems Medical Problems: (1) Dehydration Status: Acute (2) Ileus Status: Acute (3) Lung cancer Status: Acute (4) Normocytic anemia Status: Acute (5) Urinary tract infection Status: Acute (6) Vomiting Status: Acute Assessment and Plan: 1. 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 and BCR ABL improved with bosulif. Bosulif can cause nausea (47% to 48%), vomiting (37% to 43%), abdominal pain (31 % to 42%), Continue bosulif 500 mg daily when able to tolerate oral intake. 2. Stage IIIA NSCLC - Moderately to poorly differentiated adenocarcinoma in RUL diagnosed 04/11/17~- with potential nodules in the RLL and enlarged adenopathy right hilar at 1.1cm.~MRI head negative.~PET scan on 04/19/2017 reveals large hypermetabolic right upper lobe lung mass with evidence of metastatic disease to the right hilar and mediastinal lymph nodes compatible with stage IIIa lung cancer. I reviewed the diagnosis and prognosis and treatment options for stage IIIa non- small cell lung cancer. ~If she chooses active treatment is I would recommend concurrent chemoradiation therapy. ~The other option would be radiation therapy and chemotherapy given sequentially. ~Other option would be radiation therapy alone because of her poor functional status. ~The patient and daughter are concerned about her ability to tolerate chemotherapy and radiation therapy because of her baseline poor functional status. ~I reviewed the risks and benefits. ~They have decided supportive care only and no chemo or radiation.. 3. N/V - ? due to bosulif, but she has tolerated well since initiation. monitor. Comment Review of Relevant I have reviewed the following items kings (where applicable) has been applied. Labs Laboratory Tests Test 05/29/17 15:30 05/29/17 16:36 05/30/17 03:55 05/30/17 17:40 Urine Collection Type Unknown Urine Color Yellow Urine Clarity Clear Urine pH 5.5 Urine Specific [place] 1.025 Urine Protein 30 mg/dL (NEG-TRACE) Urine Glucose (UA) Negative mg/dL (NEG) Urine Ketones (Stick) Negative mg/dL (NEG) Urine Blood Negative (NEG) Urine Nitrite Negative (NEG) Urine Bilirubin Small (NEG) Urine Urobilinogen Dipstick 0.2 mg/dL (0.2 mg/dL) Urine Leukocyte Esterase Moderate (NEG) Urine RBC 1-2 /HPF (0-2) Urine WBC >40 /HPF (0-4) Urine Squamous Epithelial Cells Mod /LPF Urine Bacteria 0 /HPF (0-FEW) Urine Hyaline Casts Many /HPF Urine Mucus Mod /LPF White Blood Count 11.0 x10^3/uL (4.0-11.0) 9.4 x10^3/uL (4.0-11.0) 7.0 x10^3/uL (4.0-11.0) Red Blood Count 2.68 x10^6/uL (3.50-5.40) 2.32 x10^6/uL (3.50-5.40) 2.69 x10^6/uL (3.50-5.40) Hemoglobin 7.9 g/dL (12.0-15.5) 6.8 g/dL (12.0-15.5) 7.8 g/dL (12.0-15.5) Hematocrit 24.2 % (36.0-47.0) 20.7 % (36.0-47.0) 23.6 % (36.0-47.0) Mean Corpuscular Volume 90 fL (79-100) 89 fL (79-100) 88 fL (79-100) Mean Corpuscular Hemoglobin 30 pg (25-35) 29 pg (25-35) 29 pg (25-35) Mean Corpuscular Hemoglobin Concent 33 g/dL (31-37) 33 g/dL (31-37) 33 g/dL (31-37) Red Cell Distribution Width 17.4 % (11.5-14.5) 16.8 % (11.5-14.5) 18.0 % (11.5-14.5) Platelet Count 188 x10^3/uL (140-400) 166 x10^3/uL (140-400) 152 x10^3/uL (140-400) Neutrophils (%) (Auto) 75 % (31-73) 71 % (31-73) 74 % (31-73) Lymphocytes (%) (Auto) 14 % (24-48) 18 % (24-48) 14 % (24-48) Monocytes (%) (Auto) 9 % (0-9) 10 % (0-9) 10 % (0-9) Eosinophils (%) (Auto) 1 % (0-3) 1 % (0-3) 2 % (0-3) Basophils (%) (Auto) 1 % (0-3) 0 % (0-3) 1 % (0-3) Neutrophils # (Auto) 8.2 x10^3uL (1.8-7.7) 6.6 x10^3uL (1.8-7.7) 5.2 x10^3uL (1.8-7.7) Lymphocytes # (Auto) 1.5 x10^3/uL (1.0-4.8) 1.6 x10^3/uL (1.0-4.8) 0.9 x10^3/uL (1.0-4.8) Monocytes # (Auto) 1.0 x10^3/uL (0.0-1.1) 0.9 x10^3/uL (0.0-1.1) 0.7 x10^3/uL (0.0-1.1) Eosinophils # (Auto) 0.1 x10^3/uL (0.0-0.7) 0.1 x10^3/uL (0.0-0.7) 0.1 x10^3/uL (0.0-0.7) Basophils # (Auto) 0.1 x10^3/uL (0.0-0.2) 0.0 x10^3/uL (0.0-0.2) 0.0 x10^3/uL (0.0-0.2) Sodium Level 138 mmol/L (136-145) 139 mmol/L (136-145) Potassium Level 4.8 mmol/L (3.5-5.1) 4.2 mmol/L (3.5-5.1) Chloride Level 107 mmol/L (98-107) 110 mmol/L (98-107) Carbon Dioxide Level 17 mmol/L (21-32) 17 mmol/L (21-32) Anion Gap 14 (6-14) 12 (6-14) Blood Urea Nitrogen 34 mg/dL (7-20) 23 mg/dL (7-20) Creatinine 1.9 mg/dL (0.6-1.0) 1.2 mg/dL (0.6-1.0) Estimated GFR (Cockcroft-Gault) 26.4 44.9 BUN/Creatinine Ratio 18 (6-20) Glucose Level 104 mg/dL (70-99) 90 mg/dL (70-99) Calcium Level 8.4 mg/dL (8.5-10.1) 8.0 mg/dL (8.5-10.1) Total Bilirubin 0.2 mg/dL (0.2-1.0) Aspartate Amino Transf (AST/SGOT) 15 U/L (15-37) Alanine Aminotransferase (ALT/SGPT) 13 U/L (14-59) Alkaline Phosphatase 98 U/L (46-116) Total Protein 6.9 g/dL (6.4-8.2) Albumin 3.4 g/dL (3.4-5.0) Albumin/Globulin Ratio 1.0 (1.0-1.7) Lipase 144 U/L (73-393) Reticulocyte Count (auto) 0.4 % (0.5-2.5) Iron Level 18 ug/dL (50-170) Total Iron Binding Capacity 210 ug/dL (250-450) Iron Saturation 9 % (15-34) Ferritin 547 ng/mL (8-252) Vitamin B12 Level 622 pg/mL (247-911) Serum Folate 6.73 ng/ml (3.2-20.0) Test 05/31/17 04:13 Sodium Level 141 mmol/L (136-145) Potassium Level 4.2 mmol/L (3.5-5.1) Chloride Level 112 mmol/L (98-107) Carbon Dioxide Level 18 mmol/L (21-32) Anion Gap 11 (6-14) Blood Urea Nitrogen 8 mg/dL (7-20) Creatinine 0.9 mg/dL (0.6-1.0) Estimated GFR (Cockcroft-Gault) 62.6 Glucose Level 105 mg/dL (70-99) Calcium Level 8.4 mg/dL (8.5-10.1) Laboratory Tests Test 05/30/17 17:40 05/31/17 04:13 White Blood Count 7.0 x10^3/uL (4.0-11.0) Red Blood Count 2.69 x10^6/uL (3.50-5.40) Hemoglobin 7.8 g/dL (12.0-15.5) Hematocrit 23.6 % (36.0-47.0) Mean Corpuscular Volume 88 fL (79-100) Mean Corpuscular Hemoglobin 29 pg (25-35) Mean Corpuscular Hemoglobin Concent 33 g/dL (31-37) Red Cell Distribution Width 18.0 % (11.5-14.5) Platelet Count 152 x10^3/uL (140-400) Neutrophils (%) (Auto) 74 % (31-73) Lymphocytes (%) (Auto) 14 % (24-48) Monocytes (%) (Auto) 10 % (0-9) Eosinophils (%) (Auto) 2 % (0-3) Basophils (%) (Auto) 1 % (0-3) Neutrophils # (Auto) 5.2 x10^3uL (1.8-7.7) Lymphocytes # (Auto) 0.9 x10^3/uL (1.0-4.8) Monocytes # (Auto) 0.7 x10^3/uL (0.0-1.1) Eosinophils # (Auto) 0.1 x10^3/uL (0.0-0.7) Basophils # (Auto) 0.0 x10^3/uL (0.0-0.2) Sodium Level 141 mmol/L (136-145) Potassium Level 4.2 mmol/L (3.5-5.1) Chloride Level 112 mmol/L (98-107) Carbon Dioxide Level 18 mmol/L (21-32) Anion Gap 11 (6-14) Blood Urea Nitrogen 8 mg/dL (7-20) Creatinine 0.9 mg/dL (0.6-1.0) Estimated GFR (Cockcroft-Gault) 62.6 Glucose Level 105 mg/dL (70-99) Calcium Level 8.4 mg/dL (8.5-10.1) Medications Current Medications Sodium Chloride 1,000 ml @ 1,000 mls/hr Q1H IV Last administered on 15:57; Start 05/29/17 at 15:57; Stop 05/29/17 at 16:56; Status DC Ondansetron HCl (Zofran) 4 mg 1X ONCE IV Last administered on 05/29/17 16:00 ; Start 05/29/17 at 16:00; Stop 05/29/17 at 16:01; Status DC Ondansetron HCl (Zofran) 4 mg PRN Q8HRS PRN IV NAUSEA/VOMITING Last administered on 05/29/17 21:17; Start 05/29/17 at 18:30; Stop 05/30/17 at 18 :29; Status DC Sodium Chloride 1,000 ml @ 125 mls/hr Q8H IV Last administered on 05/30/17 11:00; Start 05/29/17 at 19:00; Stop 05/30/17 at 18:59; Status DC Acetaminophen (Tylenol) 650 mg PRN Q4HRS PRN PO FEVER Last administered on 09:11; Start 05/29/17 at 18:30; Stop 05/30/17 at 18:29; Status DC Ceftriaxone Sodium 1 gm/ Dextrose 50 ml @ 100 mls/hr Q24H IV ; Start 05/29/17 at 18:30; Status UNV Ceftriaxone Sodium (Rocephin) 1 gm Q24H IVP Last administered on 05/30/17 20: 34; Start 05/29/17 at 20:00 Pneumococcal Polyvalent Vaccine (Do NOT chart on this placeholder) 0.5 each 1X ONCE MC ; Start 05/30/17 at 00:00; Stop 05/30/17 at 00:01; Status UNV Pneumococcal Polyvalent Vaccine (Pneumovax 23) 0.5 ml ONCE ONCE VAX IM ; Start 05/30/17 at 09:00; Stop 05/30/17 at 09:01; Status DC Acetaminophen (Tylenol) 650 mg 1X ONCE PO Last administered on 05/30/17 11: 18; Start 05/30/17 at 11:15; Stop 05/30/17 at 11:16; Status DC Allopurinol (Zyloprim) 300 mg DAILY PO Last administered on 05/31/17 08:16; Start 05/30/17 at 16:00 Alprazolam (Xanax) 0.25 mg PRN QHS PRN PO ANXIETY / AGITATION; Start 05/30/17 at 15:00 Atorvastatin Calcium (Lipitor) 10 mg QHS PO ; Start 05/30/17 at 21:00 Citalopram Hydrobromide (CeleXA) 40 mg DAILY PO Last administered on 05/31/17 08:16; Start 05/30/17 at 16:00 Dextrose/Sodium Chloride 1,000 ml @ 100 mls/hr Q10H IV Last administered on 22:34; Start 05/30/17 at 22:30 Active Scripts Active Reported Bosulif (Bosutinib) 100 Mg Tablet 100 Mg PO DAILY Bosulif (Bosutinib) 100 Mg Tablet 100 Mg PO DAILY Prochlorperazine Maleate 10 Mg Tablet 1 Tab PO Q6HRS Megestrol Acetate 40 Mg Tablet 40 Mg PO DAILY Atorvastatin Calcium 10 Mg Tablet 1 Tab PO DAILY Xanax (Alprazolam) 0.25 Mg Tablet 0.25 Mg PO PRN QHS PRN Citalopram Hbr (Citalopram Hydrobromide) 40 Mg Tablet 1 Tab PO DAILY Lisinopril 5 Mg Tablet 1 Tab PO DAILY Aspir-Low (Aspirin) 81 Mg Tablet. 1 Tab PO DAILY Allopurinol 300 Mg Tablet 1 Tab PO DAILY Hydrocodone-Apap 5-325 (Hydrocodone Bit/Acetaminophen) 1 Each Tablet 1 Tab PO PRN Q6HRS PRN Vitals/I & O Vital Sign - Last 24 Hours 05/30/17 05/30/17 05/30/17 05/30/17 10:23 10:43 11:00 11:45 Temp 99.1 100.2 100.9 100.8 99.1 100.2 100.9 100.8 Pulse 74 69 77 77 Resp 14 16 18 18 B/P (MAP) 106/42 110/48 109/48 (68) 109/45 Pulse Ox 99 O2 Delivery Room Air 05/30/17 05/30/17 05/30/17 05/30/17 12:45 15:00 19:00 20:00 Temp 99.5 100.2 99.5 99.5 100.2 99.5 Pulse 75 79 76 Resp 16 20 18 B/P (MAP) 110/52 133/43 (73) 132/61 (84) Pulse Ox 97 97 O2 Delivery Room Air Room Air Room Air O2 Flow Rate 2.0 05/30/17 05/31/17 05/31/17 23:00 03:00 07:00 Temp 99.3 99.2 99.5 99.3 99.2 99.5 Pulse 77 73 73 Resp 18 18 16 B/P (MAP) 138/64 (88) 129/49 (75) 158/66 (96) Pulse Ox 98 98 97 O2 Delivery Room Air Room Air Room Air Intake and Output 05/30/17 05/30/17 05/31/17 15:00 23:00 07:00 Intake Total 470 ml 100 ml 1535 ml Output Total 750 ml Balance 470 ml -650 ml 1535 ml Nutrition Consultation Dietary Evaluation: Recommendations by RD: Increase Calorie Intake, Protein supplementation Comments: yunior gomez Expected Outcomes/Goals: diet adv/ tolerance Malnutrition Findings: Body Fat Depletion (Non Severe: Mild Depletion Weight Status: Underweight WILIAN BUNDY MD May 31, 2017 09:12
[2017-05-31 11:00] VITALS: BP 117/47
[2017-05-31 15:00] VITALS: BP 140/48
[2017-05-31] MEDS ORDERED: ACETAMINOPHEN 325 MG TABLET. PO PRN (17:30)
--- NOTE | 2017-05-31 18:48 | PDOC ---
PROGRESS NOTES Chief Complaint Chief Complaint Nausea and vomiting ASSESSMENT AND PLAN: 1. N/V: ? due to Bosulif; improved, but appetite nil. 2. Dehydration: resolved 3. LEEANNE on CKD3: creat back to baseline 4. Anemia: multifactorial, incl inflammation, malignancy, chemo. s/p PRBC x1 yesterday. 5. ?UTI: ruled out by cult. stop empiric Abx 6. NSCLC IIIa: appreciate Dr Iniguez's input: despite her claim, has not received chemo yet. 7. CML: on 3rd line bosulif, ASE, incl QT prolongation with others. 8. fever: low grade temps only. no infectious source. ?tumor fever. Long discussion with daughter: very concerned that pt has not been eating or drinking, socializing or showing any interest in anything since of her son. has been on SSRI, briefly switched at to different med, but PCP resumed original celexa. when discussion was attempted with pt, she refused any verbal response and refused nonverbal interactions as well. mhm response to all questions.. will attempt again in AM History of Present Illness History of Present Illness pt nonverbal (by choice) Vitals Vitals Vital Signs Date Time Temp Pulse Resp B/P (MAP) Pulse Ox O2 Delivery O2 Flow Rate FiO2 05/31/17 15:00 100.3 72 16 140/48 (78) 98 Room Air 100.3 05/30/17 19:00 2.0 Physical Exam General: Alert, Oriented X3, No acute distress Heart: Normal S1, Normal S2 Lungs: Clear Abdomen: Normal bowel sounds, Soft Extremities: No edema Labs LABS Laboratory Tests Test 05/31/17 04:13 Sodium Level 141 mmol/L (136-145) Potassium Level 4.2 mmol/L (3.5-5.1) Chloride Level 112 mmol/L (98-107) Carbon Dioxide Level 18 mmol/L (21-32) Anion Gap 11 (6-14) Blood Urea Nitrogen 8 mg/dL (7-20) Creatinine 0.9 mg/dL (0.6-1.0) Estimated GFR (Cockcroft-Gault) 62.6 Glucose Level 105 mg/dL (70-99) Calcium Level 8.4 mg/dL (8.5-10.1) Nutrition Consultation Dietary Evaluation: Recommendations by RD: Increase Calorie Intake, Protein supplementation Comments: boost breeze tid Expected Outcomes/Goals: diet adv/ tolerance Malnutrition Findings: Body Fat Depletion (Non Severe: Mild Depletion Weight Status: Underweight ALEXANDREA SWAN MD May 31, 2017 18:48
[2017-05-31 19:00] VITALS: BP 148/58
[2017-05-31] MEDS: cefTRIAXone IV Push 1 GM VIAL. IVP SCH (20:39)
[2017-05-31] MEDS: ATORVASTATIN CALCIUM 10 MG TABLET. PO SCH (20:39)
[2017-05-31 23:00] VITALS: BP 141/41
[2017-06-01 03:00] VITALS: BP 148/64
[2017-06-01] MEDS: IV DEXTROSE 5 %-0.45 % NACL 1,000 ML IV SCH (04:30)
[2017-06-01 07:00] VITALS: BP 143/69
[2017-06-01] MEDS: CITALOPRAM 20 MG TABLET. PO SCH (09:45)
[2017-06-01] MEDS: ALLOPURINOL 300 MG TABLET. PO SCH (09:45)
[2017-06-01 11:00] VITALS: BP 134/66
--- NOTE | 2017-06-01 14:02 | PDOC ---
PROGRESS NOTES Chief Complaint Chief Complaint Nausea and vomiting ASSESSMENT AND PLAN: 1. N/V: ? due to Bosulif; improved, but appetite nil. 2. Dehydration: resolved 3. LEEANNE on CKD3: creat back to baseline 4. Anemia: multifactorial, incl inflammation, malignancy, chemo. s/p PRBC x1 yesterday. 5. ?UTI: ruled out by cult. stop empiric Abx 6. NSCLC IIIa: appreciate Dr Iniguez's input: despite her claim, has not received chemo yet. 7. CML: on 3rd line bosulif; ASE, incl QT prolongation with others. 8. fever: low grade temps only. no infectious source. ?tumor fever. Discussion with pt and daughter: pt verbal today, although mainly yes/no answers. She answers affirmative repeatedly to questions of stopping all treatments, including medications for CML or potential treatment for lung CA. wants to go home ISAÍAS. Home hospice was discussed as well, pt is amenable. family is unfortunately familiar with the process, having had father on hospice. will contact [facility]. History of Present Illness History of Present Illness denies pain, nausea, FLEMING or other ailments Vitals Vitals Vital Signs Date Time Temp Pulse Resp B/P (MAP) Pulse Ox O2 Delivery O2 Flow Rate FiO2 06/01/17 11:00 99.7 78 16 134/66 (88) 98 Room Air 99.7 Physical Exam General: Alert, Cooperative, No acute distress Heart: Regular rate Lungs: Clear Abdomen: Normal bowel sounds, Soft Extremities: No edema Skin: No rashes Nutrition Consultation Dietary Evaluation: Recommendations by RD: Increase Calorie Intake, Protein supplementation Comments: boost breeze tid Expected Outcomes/Goals: diet adv/ tolerance Malnutrition Findings: Body Fat Depletion (Non Severe: Mild Depletion Weight Status: Underweight ALEXANDREA SWAN MD Jun 01, 2017 14:02
[2017-06-01 15:00] VITALS: BP 140/70
--- NOTE | 2017-06-01 15:46 | PDOC ---
PROGRESS NOTES Subjective Subjective HPI - CML ROS - no n/v Objective Objective Vital Signs Date Time Temp Pulse Resp B/P (MAP) Pulse Ox O2 Delivery O2 Flow Rate FiO2 06/01/17 15:00 99.1 72 16 140/70 (93) 96 Room Air 99.1 05/30/17 19:00 2.0 Intake and Output 06/01/17 07:00 Intake Total 250 ml Output Total 1950 ml Balance -1700 ml Intake Oral 250 ml Output Urine Total 1950 ml Physical Exam Heart: Normal S1, Normal S2 General: Alert, Oriented X3 Lungs: Clear to auscultation Neuro: Normal speech Assessment Assessment Problems Medical Problems: (1) Dehydration Status: Acute (2) Ileus Status: Acute (3) Lung cancer Status: Acute (4) Normocytic anemia Status: Acute (5) Urinary tract infection Status: Acute (6) Vomiting Status: Acute Assessment and Plan: 1. 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 and BCR ABL improved with bosulif. Bosulif can cause nausea (47% to 48%), vomiting (37% to 43%), abdominal pain (31 % to 42%), Continue bosulif 500 mg daily when able to tolerate oral intake. However, pt is considering stopping all treatments and pursuing with hospice which is treasonable. 2. Stage IIIA NSCLC - Moderately to poorly differentiated adenocarcinoma in RUL diagnosed 04/11/17~- with potential nodules in the RLL and enlarged adenopathy right hilar at 1.1cm.~MRI head negative.~PET scan on 04/19/2017 reveals large hypermetabolic right upper lobe lung mass with evidence of metastatic disease to the right hilar and mediastinal lymph nodes compatible with stage IIIa lung cancer. I reviewed the diagnosis and prognosis and treatment options for stage IIIa non- small cell lung cancer. ~If she chooses active treatment is I would recommend concurrent chemoradiation therapy. ~The other option would be radiation therapy and chemotherapy given sequentially. ~Other option would be radiation therapy alone because of her poor functional status. ~The patient and daughter are concerned about her ability to tolerate chemotherapy and radiation therapy because of her baseline poor functional status. ~I reviewed the risks and benefits. ~They have decided supportive care only and no chemo or radiation.. 3. N/V - ? due to bosulif, but she has tolerated well since initiation. monitor. Comment Review of Relevant I have reviewed the following items kings (where applicable) has been applied. Labs Laboratory Tests Test 05/30/17 17:40 05/31/17 04:13 White Blood Count 7.0 x10^3/uL (4.0-11.0) Red Blood Count 2.69 x10^6/uL (3.50-5.40) Hemoglobin 7.8 g/dL (12.0-15.5) Hematocrit 23.6 % (36.0-47.0) Mean Corpuscular Volume 88 fL (79-100) Mean Corpuscular Hemoglobin 29 pg (25-35) Mean Corpuscular Hemoglobin Concent 33 g/dL (31-37) Red Cell Distribution Width 18.0 % (11.5-14.5) Platelet Count 152 x10^3/uL (140-400) Neutrophils (%) (Auto) 74 % (31-73) Lymphocytes (%) (Auto) 14 % (24-48) Monocytes (%) (Auto) 10 % (0-9) Eosinophils (%) (Auto) 2 % (0-3) Basophils (%) (Auto) 1 % (0-3) Neutrophils # (Auto) 5.2 x10^3uL (1.8-7.7) Lymphocytes # (Auto) 0.9 x10^3/uL (1.0-4.8) Monocytes # (Auto) 0.7 x10^3/uL (0.0-1.1) Eosinophils # (Auto) 0.1 x10^3/uL (0.0-0.7) Basophils # (Auto) 0.0 x10^3/uL (0.0-0.2) Sodium Level 141 mmol/L (136-145) Potassium Level 4.2 mmol/L (3.5-5.1) Chloride Level 112 mmol/L (98-107) Carbon Dioxide Level 18 mmol/L (21-32) Anion Gap 11 (6-14) Blood Urea Nitrogen 8 mg/dL (7-20) Creatinine 0.9 mg/dL (0.6-1.0) Estimated GFR (Cockcroft-Gault) 62.6 Glucose Level 105 mg/dL (70-99) Calcium Level 8.4 mg/dL (8.5-10.1) Microbiology 05/29/17 Urine Culture - Final, Complete 05/29/17 Urine Culture Result 1 (ADONIS) - Final, Complete Medications Current Medications Sodium Chloride 1,000 ml @ 1,000 mls/hr Q1H IV Last administered on 15:57; Start 05/29/17 at 15:57; Stop 05/29/17 at 16:56; Status DC Ondansetron HCl (Zofran) 4 mg 1X ONCE IV Last administered on 05/29/17 16:00 ; Start 05/29/17 at 16:00; Stop 05/29/17 at 16:01; Status DC Ondansetron HCl (Zofran) 4 mg PRN Q8HRS PRN IV NAUSEA/VOMITING Last administered on 05/29/17 21:17; Start 05/29/17 at 18:30; Stop 05/30/17 at 18 :29; Status DC Sodium Chloride 1,000 ml @ 125 mls/hr Q8H IV Last administered on 05/30/17 11:00; Start 05/29/17 at 19:00; Stop 05/30/17 at 18:59; Status DC Acetaminophen (Tylenol) 650 mg PRN Q4HRS PRN PO FEVER Last administered on 09:11; Start 05/29/17 at 18:30; Stop 05/30/17 at 18:29; Status DC Ceftriaxone Sodium 1 gm/ Dextrose 50 ml @ 100 mls/hr Q24H IV ; Start 05/29/17 at 18:30; Status UNV Ceftriaxone Sodium (Rocephin) 1 gm Q24H IVP Last administered on 05/31/17 20: 39; Start 05/29/17 at 20:00 Pneumococcal Polyvalent Vaccine (Do NOT chart on this placeholder) 0.5 each 1X ONCE MC ; Start 05/30/17 at 00:00; Stop 05/30/17 at 00:01; Status UNV Pneumococcal Polyvalent Vaccine (Pneumovax 23) 0.5 ml ONCE ONCE VAX IM ; Start 05/30/17 at 09:00; Stop 05/30/17 at 09:01; Status DC Acetaminophen (Tylenol) 650 mg 1X ONCE PO Last administered on 05/30/17 11: 18; Start 05/30/17 at 11:15; Stop 05/30/17 at 11:16; Status DC Allopurinol (Zyloprim) 300 mg DAILY PO Last administered on 06/01/17 09:45; Start 05/30/17 at 16:00 Alprazolam (Xanax) 0.25 mg PRN QHS PRN PO ANXIETY / AGITATION; Start 05/30/17 at 15:00 Atorvastatin Calcium (Lipitor) 10 mg QHS PO Last administered on 05/31/17 20: 39; Start 05/30/17 at 21:00 Citalopram Hydrobromide (CeleXA) 40 mg DAILY PO Last administered on 06/01/17 09:45; Start 05/30/17 at 16:00 Dextrose/Sodium Chloride 1,000 ml @ 100 mls/hr Q10H IV Last administered on 08:30; Start 05/30/17 at 22:30; Stop 06/01/17 at 04:52; Status DC Acetaminophen (Tylenol) 650 mg PRN Q6HRS PRN PO fever Last administered on 05/31 17:57; Start 05/31/17 at 17:30 Active Scripts Active Reported Bosulif (Bosutinib) 100 Mg Tablet 100 Mg PO DAILY Bosulif (Bosutinib) 100 Mg Tablet 100 Mg PO DAILY Prochlorperazine Maleate 10 Mg Tablet 1 Tab PO Q6HRS Megestrol Acetate 40 Mg Tablet 40 Mg PO DAILY Atorvastatin Calcium 10 Mg Tablet 1 Tab PO DAILY Xanax (Alprazolam) 0.25 Mg Tablet 0.25 Mg PO PRN QHS PRN Citalopram Hbr (Citalopram Hydrobromide) 40 Mg Tablet 1 Tab PO DAILY Lisinopril 5 Mg Tablet 1 Tab PO DAILY Aspir-Low (Aspirin) 81 Mg Tablet. 1 Tab PO DAILY Allopurinol 300 Mg Tablet 1 Tab PO DAILY Hydrocodone-Apap 5-325 (Hydrocodone Bit/Acetaminophen) 1 Each Tablet 1 Tab PO PRN Q6HRS PRN Vitals/I & O Vital Sign - Last 24 Hours 05/31/17 05/31/17 05/31/17 06/01/17 19:00 20:00 23:00 03:00 Temp 99.2 98.4 98.6 99.2 98.4 98.6 Pulse 67 70 70 Resp 16 16 16 B/P (MAP) 148/58 (88) 141/41 (74) 148/64 (92) Pulse Ox 99 98 98 O2 Delivery Room Air Room Air Room Air Room Air 06/01/17 06/01/17 06/01/17 06/01/17 07:00 07:40 11:00 15:00 Temp 99.3 99.7 99.1 99.3 99.7 99.1 Pulse 75 78 72 Resp 16 16 16 B/P (MAP) 143/69 (93) 134/66 (88) 140/70 (93) Pulse Ox 97 98 96 O2 Delivery Room Air Room Air Room Air Room Air Intake and Output 05/31/17 05/31/17 06/01/17 15:00 23:00 07:00 Intake Total 250 ml 0 ml Output Total 900 ml 1050 ml Balance -650 ml -1050 ml Nutrition Consultation Dietary Evaluation: Recommendations by RD: Increase Calorie Intake, Protein supplementation Comments: yunior terrell tijennifer Expected Outcomes/Goals: diet adv/ tolerance Malnutrition Findings: Body Fat Depletion (Non Severe: Mild Depletion Weight Status: Underweight WILIAN BUNDY MD Jun 01, 2017 15:46
--- NOTE | 2017-06-03 19:30 | DS ---
DATE OF DISCHARGE: 06/01/2017 CHIEF COMPLAINT: Nausea and vomiting. HOSPITAL COURSE: The patient is a 66-year-old woman who had been diagnosed about a year ago with CML, currently on TKI as well as recent diagnosis of stage 3 nonsmall-cell lung carcinoma. She presented to the hospital with nausea, vomiting, which was attributed to potentially ____ for her CML. It did improve during her hospitalization. Appetite, however, remained nil. She did receive a unit of packed red blood cells for anemia, which was attributed to inflammation, malignancy as well as chemotherapy. The patient was somewhat withdrawn, not responding to the daughter who was quite concerned that the patient had "given up" and attempted discussion about this on 05/31 was unsuccessful as the patient was not cooperating. However, the following day, the patient was more verbal and interactive and affirmed that she did not want any further treatment for either CML or nonsmall cell lung carcinoma and that she wanted to go home and in peace. Hospice was therefore consulted for followup with her at home the following day. PHYSICAL EXAMINATION: VITAL SIGNS: Show a blood pressure of 134/66, heart rate of 78, respiratory rate at 16, no fevers. GENERAL: She is awake, alert, in no acute distress. LUNGS: Clear. HEART: Regular rate and rhythm. ABDOMEN: Positive bowel sounds. EXTREMITIES: No edema. DISCHARGE DIAGNOSES: Nausea, vomiting, chronic myeloid leukemia, nonsmall-cell lung carcinoma, tumor fevers. DISCHARGE DISPOSITION: To home with hospice. DISCHARGE CONDITION: Stable. DISCHARGE MEDICATIONS: Please refer to MAR. DISCHARGE INSTRUCTIONS: The patient will follow up with hospice at home. She will see her PCP as needed. ALEXANDREA SWAN MD DR: UR/nts JOB#: [id number] / [id number] CIRA Garcia MD
== END 2017-06-01 16:30 | disposition hospice, home (50) | DRG 388 ==
LOC: ER 14:45 → 4 NORTH 17:31
PROVIDERS: ADMIT Internal Medicine Hematology & Oncology; ATTEND Internal Medicine Hematology & Oncology
PROC: 30233N1 Transfusion of Nonautologous Red Blood Cells into Peripheral Vein, Percutaneous Approach (ICD-10-PCS; principal; 2017-05-29)
DX: K56.7 Ileus, unspecified (principal); N17.0 Acute kidney failure with tubular necrosis; J18.9 Pneumonia, unspecified organism; C92.10 Chronic myeloid leukemia, BCR/ABL-positive, not having achieved remission; I13.0 Hypertensive heart and chronic kidney disease with heart failure and stage 1 through stage 4 chronic kidney disease, or unspecified chronic kidney disease; I50.9 Heart failure, unspecified; C34.01 Malignant neoplasm of right main bronchus; D64.9 Anemia, unspecified; J44.0 Chronic obstructive pulmonary disease with (acute) lower respiratory infection; C34.11 Malignant neoplasm of upper lobe, right bronchus or lung; N39.0 Urinary tract infection, site not specified; I45.81 Long QT syndrome; E78.00 Pure hypercholesterolemia, unspecified; E86.0 Dehydration; M79.7 Fibromyalgia; E78.5 Hyperlipidemia, unspecified; F17.210 Nicotine dependence, cigarettes, uncomplicated; I25.10 Atherosclerotic heart disease of native coronary artery without angina pectoris; I73.9 Peripheral vascular disease, unspecified; K21.9 Gastro-esophageal reflux disease without esophagitis; N18.3 Chronic kidney disease, stage 3 (moderate); Z95.1 Presence of aortocoronary bypass graft; F32.9 Major depressive disorder, single episode, unspecified; Z90.710 Acquired absence of both cervix and uterus; Z51.11 Encounter for antineoplastic chemotherapy; R11.2 Nausea with vomiting, unspecified; T45.1X5A Adverse effect of antineoplastic and immunosuppressive drugs, initial encounter
CPT/HCPCS: 36415; 74022; 80048; 80053; 81001; 82607; 82728; 82746; 83540; 83550; 83690; 85025; 85045; 86850; 86900; 86901; 86920; 87086; 96361; 96374; J0696; J2405; J7030; P9016; 97116; 99285-25